=== PATIENT | male | born 1970 | race Caucasian/White ===

== ENCOUNTER → 2024-10-04 06:33 | Day surgery (SDC) | payer OTHER, SELFPAY | LOC: GI 06:33 | PROVIDERS: ATTENDING PHYSICIAN Internal Medicine | DX: Z13.810 Encounter for screening for upper gastrointestinal disorder (principal); K44.9 Diaphragmatic hernia without obstruction or gangrene; K31.7 Polyp of stomach and duodenum; K92.2 Gastrointestinal hemorrhage, unspecified; K31.89 Other diseases of stomach and duodenum | CPT/HCPCS: 43251; 43239; 88305; 88342 ==

== ENCOUNTER 2025-10-17 06:27 | Day surgery (SDC) | payer OTHER, SELFPAY | END 2025-10-17 09:57 | disposition home or self-care (01) | LOC: GI 06:27 | PROVIDERS: ATTENDING PHYSICIAN Internal Medicine | DX: K22.89 Other specified disease of esophagus (principal); K44.9 Diaphragmatic hernia without obstruction or gangrene; K22.10 Ulcer of esophagus without bleeding; K21.9 Gastro-esophageal reflux disease without esophagitis; Q40.2 Other specified congenital malformations of stomach; R13.10 Dysphagia, unspecified | CPT/HCPCS: 43239; 88305; 88342 ==